=== PATIENT | male | born 1955 | race Caucasian/White ===

== ENCOUNTER 2016-12-02 04:43 | Emergency (ER) | payer OTHER ==
[2016-12-02 05:24] VITALS: BMI 30.2
--- NOTE | 2016-12-02 06:30 | PDOC ---
History of Present Illness - General Chief Complaint: Pain Stated Complaint: ABD PAIN History Source: Patient Exam Limitations: No Limitations - History of Present Illness Initial Comments: 12/02/16 06:24 61 yo male with h/o aaa 9 (4.5 cm) followed by dr cooney, here with c/o abd pain. no radiation. started on right side, now towards midline. no nausea, no vomiting. no f/c no new numbness or weakness. pain radiates from epigastrum to chest. no urinary complaint.s no cough. no change to stool. Past History - Past Medical History Allergies/Adverse Reactions: Allergies Allergy/AdvReac Type Severity Reaction Status Date / Time No Known Allergies Allergy Verified 12/02/16 05:21 Home Medications: Ambulatory Orders Aspirin [ASA -] 325 mg PO DAILY 03/26/11 Multivits-Min/FA/Lycopene/Lut [Centrum Silver Tablet] 1 each PO DAILY 03/26/11 Anemia: No Asthma: No Cancer: No Cardiac Disorders: No CVA: No COPD: No CHF: No Dementia: No Diabetes: No GI Disorders: No Disorders: No HTN: No Hypercholesterolemia: No Liver Disease: No Seizures: No Thyroid Disease: No - Surgical History Abdominal Surgery: No Appendectomy: No Cardiac Surgery: No Cholecystectomy: No Lung Surgery: No Neurologic Surgery: No Orthopedic Surgery: No - Suicide/Smoking/Psychosocial Hx Smoking History: Never smoked Have you smoked in the past 12 months: No Number of Cigarettes Smoked Daily: 30 Information on smoking cessation initiated: No Hx Alcohol Use: No Drug/Substance Use Hx: No Review of Systems - Review of Systems Constitutional: No: Chills, Diaphoresis HEENTM: No: Blurred Vision Respiratory: No: Cough, Orthopnea Cardiac (ROS): Yes: Chest Pain. No: See HPI ABD/GI: Yes: Nausea, Other (abd pain). No: Abdominal Distended : No: Burning, Dysuria Musculoskeletal: No: Back Pain, Gout All Other Systems: Reviewed and Negative *Physical Exam - Vital Signs Last Vital Signs Temp Pulse Resp BP Pulse Ox 98.0 F 55 L 14 158/80 97 12/02/16 05:22 12/02/16 05:22 12/02/16 05:22 12/02/16 05:22 12/02/16 05:22 - Physical Exam General Appearance: Yes: Nourished HEENT: positive: Normal ENT Inspection Neck: positive: Trachea midline. negative: Normal Thyroid Respiratory/Chest: positive: Lungs Clear, Normal Breath Sounds Cardiovascular: positive: Regular Rhythm, Regular Rate, S1, S2 Gastrointestinal/Abdominal: positive: Normal Bowel Sounds, Flat, Soft, Other ( no pulsatile masses). negative: Tender Musculoskeletal: positive: Normal Inspection. 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 differential pancreatitis, gastritis, aaa, uti, plan ct angio labs ekg trop reassess.
[2016-12-02 06:59] LABS: BASOPHIL 0.5 % (0-2.0); EOSINOPHIL 0.4 % (0-4.5); MCH 32.4 pg (25.7-33.7); MCHC 34.7 g/dl (32.0-35.9); MEAN CELL VOLUME 93.4 fl (80-96); PLATELET COUNT 194 K/MM3 (134-434); RDW 13.2 % (11.9-15.9); WHITE BLOOD COUNT 10.3 K/mm3 (4.0-10.0)
[2016-12-02 07:14] LABS: INR 1.04 (0.82-1.09); PROTHROMBIN TIME (PATIENT) 11.5 SEC (9.98-11.88)
[2016-12-02 07:17] LABS: ACTIVATED PTT 36.7 SECONDS (26.9-34.4)
[2016-12-02 07:24] LABS: ANION GAP 6 (8-16); BILIRUBIN,TOTAL 0.3 mg/dL (0.2-1.0); CALCIUM 8.5 mg/dL (8.5-10.1); CO2 27 mmol/L (21-32); CREATININE 0.8 mg/dL (0.7-1.3); GLUCOSE,RANDOM 145 mg/dL (74-106); SGPT/ALT 17 U/L (12-78); TOT PROT 7.3 g/dl (6.4-8.2)
[2016-12-02 07:27] LABS: ALK PHOS 77 U/L (45-117); CPK 91 IU/L (39-308); TROPONIN I < 0.02 ng/ml (0.00-0.05)
[2016-12-02 07:29] LABS: SGOT/AST 19 U/L (15-37)
[2016-12-02 09:15] VITALS: TEMP 97.9
--- NOTE | 2016-12-02 09:26 | PDOC ---
*Physical Exam - Vital Signs Last Vital Signs Temp Pulse Resp BP Pulse Ox 97.9 F 63 18 143/79 98 12/02/16 08:23 12/02/16 08:23 12/02/16 08:23 12/02/16 08:23 12/02/16 08:23 <Catie Romo - Last Filed: 12/02/16 10:13> - Vital Signs Last Vital Signs Temp Pulse Resp BP Pulse Ox 97.9 F 63 18 143/79 98 12/02/16 08:23 12/02/16 08:23 12/02/16 08:23 12/02/16 08:23 12/02/16 08:23 - Physical Exam Comments: 12/02/16 09:23 VSS well appearing, lying comfortably in stretcher. asx now, no abd pain heart/lungs normal abd soft/nt/nd bs nl. no pulsatile mass or guarding/rebound <Fercho Garcia - Last Filed: 12/02/16 11:08> ED Treatment Course - LABORATORY CBC & Chemistry Diagram: 12/02/16 06:45 12/02/16 06:45 - ADDITIONAL ORDERS Additional order review: Laboratory Results 12/02/16 12/02/16 06:45 06:45 PT with INR 11.50 INR 1.04 PTT (Actin FS) 36.7 H Sodium 137 Potassium 4.9 Chloride 104 Carbon Dioxide 27 Anion Gap 6 L BUN 21 H Creatinine 0.8 Creat Clearance w eGFR > 60 Random Glucose 145 H Calcium 8.5 Total Bilirubin 0.3 AST 19 ALT 17 Alkaline Phosphatase 77 Creatine Kinase 91 Troponin I < 0.02 Total Protein 7.3 Albumin 4.0 12/02/16 06:45 RBC 4.75 MCV 93.4 MCHC 34.7 RDW 13.2 MPV 7.0 L Neutrophils % 83.0 H Lymphocytes % 10.7 Monocytes % 5.4 Eosinophils % 0.4 Basophils % 0.5 <Catie Romo - Last Filed: 12/02/16 10:13> - LABORATORY CBC & Chemistry Diagram: 12/02/16 06:45 12/02/16 06:45 - ADDITIONAL ORDERS Additional order review: Laboratory Results 12/02/16 12/02/16 06:45 06:45 PT with INR 11.50 INR 1.04 PTT (Actin FS) 36.7 H Sodium 137 Potassium 4.9 Chloride 104 Carbon Dioxide 27 Anion Gap 6 L BUN 21 H Creatinine 0.8 Creat Clearance w eGFR > 60 Random Glucose 145 H Calcium 8.5 Total Bilirubin 0.3 AST 19 ALT 17 Alkaline Phosphatase 77 Creatine Kinase 91 Troponin I < 0.02 Total Protein 7.3 Albumin 4.0 12/02/16 06:45 RBC 4.75 MCV 93.4 MCHC 34.7 RDW 13.2 MPV 7.0 L Neutrophils % 83.0 H Lymphocytes % 10.7 Monocytes % 5.4 Eosinophils % 0.4 Basophils % 0.5 <Fercho Garcia - Last Filed: 12/02/16 11:08> Medical Decision Making - Medical Decision Making 12/02/16 10:07 Placed call to patient's PCP, Dr. Gonzalez at [phone]. Awaiting callback. 12/02/16 10:[address] George Cooney of Vascular Surgery at [phone]. Awaiting callback. 12/02/16 10:[address] Cooney. <Catie Romo - Last Filed: 12/02/16 10:13> - Medical Decision Making 12/02/16 09:23 Received signout on this 61-year-old male who awoke with some right-sided abdominal discomfort that radiated to his epigastric region, since resolved. He has a history of a known AAA measuring 4.3 cm on last evaluation, his vital signs were normal, his abdominal exam was benign, and his labs were unremarkable. Plan at sign out was to follow up CTA of the chest/abdomen/pelvis, to check a second troponin given the radiation of pain to the epigastric region for atypical chest pain, and to likely discharge if the above workup is negative. CTA shows slight enlargement of the known AAA from 4.3 cm to 4.8 cm, scattered other aneurysmal dilatations in the abdomen, but no evidence of acute rupture or dissection or other acute pathology. The patient's pain has resolved, his abdominal exam remains benign, and he is well-appearing. At this time, acute aneurysmal pathology is clinically unlikely. We'll check second troponin as per prior plan, and begin dispo planning with Dr. Cooney, the patient's vascular surgeon, and Dr. Gonzalez, the patient's primary physician. 12/02/16 10:59 2nd troponin negative. Discussed with Dr. cooney, no acute interventions needed. Continues to feel well, agrees with d/c plan. <Fercho Garcia - Last Filed: 12/02/16 11:08> *DC/Admit/Observation/Transfer - Attestations Scribe Attestion: 12/02/16 10:12 Documentation prepared by Catie Romo, acting as medical administrative specialist for Fercho Garcia MD. <Catie Romo - Last Filed: 12/02/16 10:13> <Fercho Garcia - Last Filed: 12/02/16 11:08> Diagnosis at time of Disposition: Generalized abdominal pain AAA (abdominal aortic aneurysm) Qualifiers: Presence of rupture: without rupture Qualified Code(s): I71.4 - Abdominal aortic aneurysm, without rupture - Discharge Dispostion Disposition: HOME Condition at time of disposition: Improved - Referrals Referrals: Geoffrey Gonzalez MD [Primary Care Provider] - George Cooney MD [Staff Physician] - - Patient Instructions Printed Discharge Instructions: DI for Abdominal Pain-Adult, Aortic Aneurysm Additional Instructions: Activity as tolerated. Stay hydrated. Blood tests and a CAT scan of the abdomen and pelvis showed no acute abnormalities today. The aneurysm is slightly larger than before, measuring 4.[address] Cooney as scheduled. Continue your medications as previously prescribed by your physician. You should follow up with Dr. Gonzalez and Dr. Cooney as soon as possible regarding today's emergency department visit. Return to the emergency department for any new or concerning symptoms, particularly persistent or worsening pain, bloody vomit or stool, fevers or chills, chest pain or difficulty breathing.
[2016-12-02 10:12] LABS: URINE APPEARANCE CLEAR; URINE BILIRUBIN NEGATIVE (NEGATIVE); URINE BLOOD NEGATIVE (NEGATIVE); URINE COLOR STRAW; URINE GLUCOSE (UA) NEGATIVE (NEGATIVE); URINE KETONE TRACE (NEGATIVE); URINE LEUK ESTERASE NEGATIVE (NEGATIVE); URINE NITRITE NEGATIVE (NEGATIVE); URINE PROTEIN NEGATIVE (NEGATIVE); URINE UROBILINOGEN NEGATIVE mg/dL (0.2-1.0)
[2016-12-02 10:33] LABS: CPK 83 IU/L (39-308); TROPONIN I < 0.02 ng/ml (0.00-0.05)
[2016-12-02 11:21] VITALS: BP 126/70; PULSE 65
--- NOTE | 2016-12-02 20:55 | EKG ---
Test Reason : Blood Pressure : / mmHG Vent. Rate : 055 BPM Atrial Rate : 055 BPM P-R Int : 154 ms QRS Dur : 096 ms QT Int : 442 ms P-R-T Axes : 068 -12 053 degrees QTc Int : 422 ms SINUS BRADYCARDIA LEFT AXIS DEVIATION SLOW R PROGRESSION V1-V3 NO PREVIOUS ECGS AVAILABLE CLINICAL CORRELATION IS RECOMMENDED REPEAT EKG IF CLINICALLY INDICATED Confirmed by RENO MARISCAL MD ([id number] on 12/02/2016 8:54:57 PM Referred By: Confirmed By:RENO MARISCAL MD
== END 2016-12-02 11:21 | disposition home or self-care (01) ==
LOC: JER 04:43
DX: R10.84 Generalized abdominal pain (principal); I71.4 Abdominal aortic aneurysm, without rupture
CPT/HCPCS: 36415; 71020-TC; 71275-TC; 74174-TC; 80053; 81003; 84484; 85025; 85610; 85730; 93005; 93010; 99283-25

== ENCOUNTER 2017-06-12 07:20 | Day surgery (SDC) | payer OTHER ==
[2017-06-11 08:39] VITALS: BMI 31.5
[2017-06-12] MEDS ORDERED: ACETAMINOPHEN INJECTION 100 ML IVPB ONE (07:25)
--- NOTE | 2017-06-12 07:56 | HP ---
[facility] - Chief Complaint Chief Complaint: LEFT KNEE PAIN History Source: Patient - Past Medical History Allergies/Adverse Reactions: Allergies Allergy/AdvReac Type Severity Reaction Status Date / Time No Known Allergies Allergy Verified 06/12/17 07:37 - Current Medications Current Medications: Home Medications Medication Instructions Recorded Aspirin [ASA -] 325 mg PO DAILY 06/11/17 Naproxen Sodium [Aleve] 220 mg PO PRN PRN 06/11/17 Satellite Physical Exam - Physical Examination Extremities: Other (+ JOINT LINE TENDERNESS) [facility] Impression/Plan - Impression/Plan Impression: INERNAL DERANGEMENT LEFT KNEE Operative Procedure: ARTHROSCOPY LEFT KNEE Date to be Performed: 06/12/17
[2017-06-12] MEDS ORDERED: MIDAZOLAM HCL 2 MG/2 ML SINGLE DOSE VIAL ONE (08:52)
[2017-06-12] MEDS ORDERED: LIDOCAINE HCL/PF 2% SDV 5ML VIAL ONE (09:06)
[2017-06-12] MEDS ORDERED: PROPOFOL 20 ML ONE (09:06)
[2017-06-12] MEDS ORDERED: KETOROLAC TROMETHAMINE 30 MG/1 ML VIAL ONE (09:06)
--- NOTE | 2017-06-12 09:42 | OP ---
Operative Note - Note: Operative Date: 06/12/17 Pre-Operative Diagnosis: INTERNAL DERANGEMENT LEFT KNEE Operation: ARTHROSCOPY LEFT KNEE AND MM Post-Operative Diagnosis: Same as Pre-op Surgeon: Richmond Bradshaw Anesthesia: General Operative Report Dictated: Yes
[2017-06-12] MEDS ORDERED: oxyCODONE HCL 5 MG TABLET PO PRN (09:53)
[2017-06-12] MEDS ORDERED: ONDANSETRON 4 MG/2 ML VIAL IVPUSH PRN (09:53)
[2017-06-12] MEDS ORDERED: LACTATED RINGERS SOLUTION 1,000 ML IV SCH (10:00)
[2017-06-12] MEDS ORDERED: BUPIVACAINE HCL/PF 0.5% (5MG/ML) 10 ML VIAL IJ ONE (10:02)
[2017-06-12] MEDS ORDERED: LIDOCAINE HCL 1%, 10 MG/ML (20ML VIAL) INF ONE (10:02)
--- NOTE | 2017-06-12 10:32 | OP ---
DATE OF OPERATION: 06/12/2017 PREOPERATIVE DIAGNOSIS: Internal derangement of left knee. POSTOPERATIVE DIAGNOSIS: Internal derangement of left knee. PROCEDURE: Arthroscopy, left knee. Partial medial meniscectomy. SURGICAL ATTENDING: Richmond Bradshaw MD ANESTHESIA: General with LMA. CLOSURE: 4-0 nylon COMPLICATIONS: None. CONDITION: To recovery room in stable condition. DESCRIPTION OF THE OPERATIVE PROCEDURE: Patient taken to the operating room on June 12, 2017. General anesthesia with LMA was administered by the anesthesiologist. Left lower extremity was prepped and draped in the usual sterile fashion. Medial and lateral infrapatellar portal sites were made with 15-blade followed by blunt trocar. Scope was placed in the lateral infrapatellar portal and up to suprapatellar pouch. The knee was inflated with a cocktail of 10 mL of 1% Xylocaine, 10 mL 0.5% Marcaine, 20 mL of arthroscopic saline. After allowing a few minutes for the anesthetic to work, we proceeded with the procedure. Medial and lateral gutters were visualized to be intact, with the undersurface of the patella and trochlea visualized to be intact. With valgus stress on the knee, the medial compartment was entered. The medial meniscus was visualized, probed, and found to have a complex tear of the posterior horn. This was debrided back to smooth, stable meniscal tissue using meniscal biter and arthroscopic shaver. There were some significant diffuse changes of the medial femoral condyle. Any loose articular cartilage was debrided using the shaver. The same was true of the medial tibial plateau. At 90 degrees the ACL was visualized, probed, found to be intact. In the figure 4 position, lateral compartment was entered. Lateral meniscus was visualized, probed, found to be intact. Lateral femoral condyle was run and found to be intact, as was the lateral tibial plateau. Knee was irrigated with copious amounts of irrigation. Portals were closed with 4-0 nylon. Prior to closure, 20 mL of 0.5% Marcaine was infused into the knee for postoperative analgesia. Sterile pressure dressing was placed over the knee. Patient awakened from anesthesia and transferred to recovery room in stable condition. No complications. Estimated blood loss negligible. Nadia [id number]
[2017-06-12 11:08] VITALS: TEMP 97.9
[2017-06-12 12:27] VITALS: BP 127/65; PULSE 75
--- NOTE | 2017-06-15 14:05 | PATH ---
Surgical Pathology Report Patient Name: BARAK LEHMAN Med. Rec. #: [id number] /Age/Gender: 1955 (Age: 62) / M Account: [id number] Location: [facility] SURGICAL Taken: 06/12/2017 Received: 06/12/2017 Reported: 06/15/2017 Physicians: Richmond Bradshaw M.D. Specimen(s) Received LEFT KNEE SHAVINGS Clinical History Left knee internal derangement Final Diagnosis KNEE, LEFT, ARTHROSCOPIC SHAVING: FIBROCARTILAGE WITH MYXOID DEGENERATIVE CHANGES, ALONG WITH PORTIONS OF SYNOVIUM AND HYALINE CARTILAGE. Electronically Signed Steve Ovalle M.D. Gross Description Received in formalin labeled "left knee shavings" are multiple fragments of white-lyon soft tissue measuring 1.5 x 1.5 x 0.2 cm in aggregate. The entire specimen submitted in one cassette. ALLEN/06/12/2017 sharee/06/12/2017
== END 2017-06-12 12:15 | disposition home or self-care (01) ==
LOC: JASU-SURG 07:20
PROVIDERS: ATTEND Orthopaedic Surgery
PROC: 0SBD4ZZ Excision of Left Knee Joint, Percutaneous Endoscopic Approach (ICD-10-PCS; principal; 2017-06-12 08:45)
DX: M23.8X2 Other internal derangements of left knee (principal)
CPT/HCPCS: 88304-TC; 94760; J0131

== ENCOUNTER 2018-08-24 00:09 | Inpatient (IN) | payer OTHER | END 2018-08-27 11:44 | disposition home or self-care (01) | LOC: JER 00:09 → JERBED 03:47 → J8W 14:58 ==

== ENCOUNTER 2018-12-21 05:14 | Inpatient (IN) | payer OTHER ==
[2018-12-21 06:32] VITALS: BMI 34.3
[2018-12-21 07:18] LABS: ALBUMIN 4.4 g/dl (3.4-5.0); ALK PHOS 77 U/L (45-117); ANION GAP 9 MMOL/L (8-16); BILIRUBIN,TOTAL 0.4 mg/dL (0.2-1); BLOOD UREA NITROGEN 21.6 mg/dL (7-18); CALCIUM 9.3 mg/dL (8.5-10.1); CHLORIDE 102 mmol/L (98-107); CO2 27 mmol/L (21-32); GLUCOSE,RANDOM 174 mg/dL (74-106); POTASSIUM 4.2 mmol/L (3.5-5.1); SGOT/AST 15 U/L (15-37); SGPT/ALT 17 U/L (13-61); SODIUM 138 mmol/L (136-145)
[2018-12-21 07:25] LABS: HEMATOCRIT 40.9 % (35.4-49); HEMOGLOBIN 14.2 GM/dL (11.7-16.9); MCH 31.2 pg (25.7-33.7); MCHC 34.9 g/dl (32.0-35.9); MEAN CELL VOLUME 89.5 fl (80-96); MEAN PLT VOLUME 7.1 fl (7.5-11.1); PLATELET COUNT 236 K/MM3 (134-434); RBC 4.57 M/mm3 (4.00-5.60); RDW 12.6 % (11.9-15.9); WHITE BLOOD COUNT 10.9 K/mm3 (4.0-10.0)
[2018-12-21] MEDS ORDERED: SODIUM CHLORIDE 1,000 ML IV STA ×2 (07:27→09:52)
[2018-12-21] MEDS ORDERED: ACETAMINOPHEN 1000 MG/100 ML VIAL (NON FORMULARY) IVPB ONE (07:27)
[2018-12-21] MEDS ORDERED: FAMOTIDINE 20 MG/50 ML IVPB 20 MG/50 ML MG IVPB ONE ×2 (07:27→07:55)
[2018-12-21 07:33] LABS: INR 1.03 (0.83-1.09); PROTHROMBIN TIME (PATIENT) 12.2 SEC (9.7-13.0)
--- NOTE | 2018-12-21 07:53 | PDOC ---
History of Present Illness - General Chief Complaint: Pain Stated Complaint: ABD PAIN Time Seen by Provider: 12/21/18 07:20 History Source: Patient, Old Records Exam Limitations: No Limitations - History of Present Illness Initial Comments: 12/21/18 07:50 63yo M with PMH of AAA presenting to ED with complaints of abdominal pain that started 11pm last night. Patient states he ate fried eggs at around 9pm and then the pain started 2h later. He describes the pain as sharp, constant located in the epigastric area and RLQ. He thought it was gas and tried taking Gas-X but vomited. He states that drinking water makes the pain worse. Pain does not radiate. Has had chronic R sided back pain, not worse today. Denies diarrhea, constipation, chest pain, sob, new back pain, urinary symptoms, fevers , chills, recent travel, abdominal surgeries. He says he had a "scan" last month for the AAA and says it has been stable. PMD: Lisa PMH: AAA PSH: None Meds: none Allergies: nkda Social: former smoker Past History - Past Medical History Allergies/Adverse Reactions: Allergies Allergy/AdvReac Type Severity Reaction Status Date / Time No Known Allergies Allergy Verified 12/21/18 06:31 Home Medications: Ambulatory Orders Aspirin [Viviana Chewable] 81 mg PO DAILY 08/24/18 Albuterol Sulfate Inhaler - [Ventolin Hfa Inhaler -] 1 - 2 inh PO Q4H #1 inhaler 08/26/18 Budesonide/Formeterol Fumarate [SYMBICORT 80/4.5mcg -] 2 inh PO DAILY #1 cannister 08/26/18 Prednisone See Taper PO DAILY #98 tablet 08/26/18 Nicotine Polacrilex [Nicorette] 4 mg BC Q2H #180 gum 08/27/18 Pantoprazole Sodium [Protonix] 40 mg PO DAILY #30 tablet. 08/27/18 Anemia: No Asthma: No Cancer: No Cardiac Disorders: Yes (ABDOMINAL ANEURSYM BEING FOLLOWED) CVA: No COPD: No CHF: No Dementia: No Diabetes: No GI Disorders: No Disorders: No HTN: No Hypercholesterolemia: No Liver Disease: No Seizures: No Thyroid Disease: No - Surgical History Abdominal Surgery: No Appendectomy: No Cardiac Surgery: No Cholecystectomy: No Lung Surgery: No Neurologic Surgery: No Orthopedic Surgery: No - Psycho Social/Smoking Cessation Hx Smoking History: Never smoked Have you smoked in the past 12 months: Yes Number of Cigarettes Smoked Daily: 40 If you are a former smoker, when did you quit?: August 2018 Cigars Per Day: 3 'Breaking Loose' booklet given: 08/24/18 Hx Alcohol Use: No Drug/Substance Use Hx: No Substance Use Type: None Hx Substance Use Treatment: No Review of Systems - Review of Systems Constitutional: No: Chills, Fever HEENTM: No: Symptoms Reported Respiratory: No: Symptoms reported Cardiac (ROS): No: Symptoms Reported ABD/GI: Yes: Nausea, Vomiting, Abdominal cramping. No: Constipated, Diarrhea : No: Symptoms Reported Musculoskeletal: Yes: See HPI, Back Pain (chronic) Integumentary: No: Symptoms Reported Neurological: No: Symptoms reported *Physical Exam - Vital Signs Last Vital Signs Temp Pulse Resp BP Pulse Ox 97.7 F 53 L 19 158/80 98 12/21/18 05:20 12/21/18 05:20 12/21/18 05:20 12/21/18 05:20 12/21/18 05:20 - Physical Exam General Appearance: Yes: Appropriately Dressed, Obese. No: Apparent Distress HEENT: positive: EOMI, SHWETA, Normal ENT Inspection Neck: positive: Trachea midline, Supple. negative: Lymphadenopathy (R), Lymphadenopathy (L) Respiratory/Chest: positive: Lungs Clear, Normal Breath Sounds. negative: Crackles, Rales, Rhonchi, Stridor, Wheezing Cardiovascular: positive: Regular Rhythm, Regular Rate, S1, S2. negative: Edema , JVD, Murmur Vascular Pulses: Dorsalis-Pedis (R): 2+, Doralis-Pedis (L): 2+ Gastrointestinal/Abdominal: positive: Normal Bowel Sounds, Protuberent, Tenderness (epigastric, RUQ). negative: Rebound, Hernia, Mass Musculoskeletal: negative: CVA Tenderness, Muscle Spasm, Vertebral Tenderness Extremity: positive: Normal Capillary Refill. 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, Fully Oriented, Alert, Normal Mood/ Affect, Normal Response, Motor Strength 07/18 ED Treatment Course - LABORATORY CBC & Chemistry Diagram: 12/21/18 06:20 12/21/18 06:20 - ADDITIONAL ORDERS Additional order review: Laboratory Results 12/21/18 12/21/18 12/21/18 06:20 06:20 06:20 PT with INR 12.20 INR 1.03 Sodium 138 Potassium 4.2 Chloride 102 Carbon Dioxide 27 Anion Gap 9 BUN 21.6 H Creatinine 1.0 Est GFR (CKD-EPI)AfAm 93.08 Est GFR (CKD-EPI)NonAf 80.31 Random Glucose 174 H Lactic Acid 2.3 H* Calcium 9.3 Total Bilirubin 0.4 AST 15 ALT 17 Alkaline Phosphatase 77 Creatine Kinase 86 Troponin I < 0.02 Total Protein 8.0 Albumin 4.4 Medical Decision Making - Medical Decision Making 12/21/18 07:56 63yo M with PMH of AAA presenting to ED with abdominal pain. vitals wnl. not hypotensive or tachycardic. ddx includes but not limited to expanding aaa, cholecystitis, choledocolithiasis , appendicitis, gastritis, GERD, pud, obstruction. bedside ultrasound shows stone in neck of gallbladder. unable to visualize aorta due to bowel gas. +sonographic upton's sign. labs ordered by night team with lactate of 2.3. all other labs wnl. -iv fluids ofirmev pepcid ekg: sinus bradycardia at 52bpm. no signs of ischemia. Called Dr. Gonzalez in regards to patient history; has not seen patient for a while. due to history of AAA, will obtain CTA AP to evaluate size. CTAP shows 5.8cm AAA which is larger compared to previous imaging which showed 5.4 cm (never had CTAP at this facility). Previous US have shown AAA at largest to be 5.1 cm (most recent done last month) . He is not on any statins or bp meds. gallstone without signs of acute cholecystitis. Called Dr. Barreto: wants to admit patient to be monitored. accepted by hospitalist. patient still in pain; given morphine. Discharge - Discharge Information Problems reviewed: Yes Clinical Impression/Diagnosis: AAA (abdominal aortic aneurysm) Qualifiers: Presence of rupture: without rupture Qualified Code(s): I71.4 - Abdominal aortic aneurysm, without rupture Abdominal pain Qualifiers: Abdominal location: epigastric Qualified Code(s): R10.13 - Epigastric pain Condition: Fair - Admission Yes - Follow up/Referral - Patient Discharge Instructions - Post Discharge Activity
[2018-12-21] MEDS ORDERED: ACETAMINOPHEN INJECTION 100 ML IVPB ONE (07:55)
[2018-12-21 08:28] LABS: EPI CELLS 0.6 /HPF (0-5/HPF); HYALINE CASTS 1 /lpf (0-8); PH,URINE 6.5 (5.0-8.0); URINE APPEARANCE CLEAR; URINE BACTERIA 0.8 /hpf (NEGATIVE); URINE BILIRUBIN NEGATIVE (NEGATIVE); URINE COLOR YELLOW; URINE GLUCOSE (UA) NEGATIVE (NEGATIVE); URINE KETONE TRACE (NEGATIVE); URINE LEUK ESTERASE NEGATIVE (NEGATIVE); URINE NITRITE NEGATIVE (NEGATIVE); URINE PROTEIN 1+ (NEGATIVE); URINE RBC 1 /hpf (0-4); URINE UROBILINOGEN 0.2 mg/dL (0.2-1.0); URINE WBC 1 /hpf (0-5)
--- NOTE | 2018-12-21 09:23 | PDOC ---
Attending Attestation - Resident Resident Name: [facility] - ED Attending Attestation I have performed the following: I have examined & evaluated the patient, The case was reviewed & discussed with the resident, I agree w/resident's findings & plan, Exceptions are as noted
--- NOTE | 2018-12-21 12:04 | EKG ---
Test Reason : Blood Pressure : / mmHG Vent. Rate : 052 BPM Atrial Rate : 052 BPM P-R Int : 154 ms QRS Dur : 102 ms QT Int : 432 ms P-R-T Axes : 040 -10 050 degrees QTc Int : 401 ms SINUS BRADYCARDIA OTHERWISE NORMAL ECG WHEN COMPARED WITH ECG OF 24-AUG-2018 01:05, VENT. RATE HAS DECREASED BY 60 BPM QRS AXIS SHIFTED RIGHT Confirmed by Gary Vivar ([id number]) on 12/21/2018 12:04:35 PM Referred By: Confirmed By:Gary Vivar
--- NOTE | 2018-12-21 12:57 | PDOC ---
Documentation entered by Augustus Lee SCRIBE, acting as scribe for Jcarlos Perez MD. Jcarlos Perez MD: This documentation has been prepared by the Jesus paulino Daniel, SCRIBE, under my direction and personally reviewed by me in its entirety. I confirm that the documentation accurately reflects all work, treatment, procedures, and medical decision making performed by me. Attending Attestation - Resident Resident Name: [facility] - ED Attending Attestation I have performed the following: I have examined & evaluated the patient, The case was reviewed & discussed with the resident, I agree w/resident's findings & plan, Exceptions are as noted - HPI HPI: 12/21/18 10:01 The patient is a 63 year old male with a past medical history of AAA here today for evaluation of abdominal pain. The patient reports that his pain started last night around 11 PM and describes it as constant, localized in the epigastric and right lower quadrant area, and without any alleviating or worsening factors. He notes that his pain feels like gas pain that he had previously and also notes some abdominal distention. He reports that he is able to pass gas, had one episode of vomiting, and that his last bowel movement was yesterday and was smaller than usual. Patient denies headache, lightheadedness. Denies fever, chills. Denies chest pain, shortness of breath. Allergies: NKA PCP: Geoffrey Gonzalez - Physicial Exam PE: 12/21/18 10:01 Vitals: Triage vital signs reviewed General Appearance: No acute distress, well nourished, well developed Head: Atraumatic Neck: Supple; No nuchal rigidity Chest Wall: Nontender Cardiac: Regular rate and rhythm, no murmurs, no rubs, no gallops Lungs: Clear to auscultation bilateral, good air movement bilaterally Abdomen: +mild distention. +diffuse abdominal tenderness that is maximal on the right side. Soft, normal bowel sounds Extremities: Full range of motion to all extremities, no cyanosis, clubbing, or edema Skin: Warm and dry, no rashes or lesions, no rash, no petechiae Neuro: AOX3; Cranial Nerves 2-12 grossly intact, Strength intact to all extremities, Sensation intact to all extremities Psych: Normal mood, normal affect - Medical Decision Making 12/21/18 16:30 CT findings as dictated, patient still persistent abdominal discomfort Vascular surgery consulted Given enlargement of the aneurysm slight lactic acidosis and persistent abdominal discomfort vascular surgery recommends admission for consultation and further management No evidence of leakage from AAA
[2018-12-21] MEDS ORDERED: morphine CARPU-JECT 4 MG/1 ML DISP.SYRIN IVPUSH ONE (13:13)
--- NOTE | 2018-12-21 13:14 | HP ---
Admitting History and Physical - Primary Care Physician PCP: Geoffrey Gonzalez - Admission Chief Complaint: abdominal pain History of Present Illness: 63yo M with PMH of AAA presenting to ED with complaints of abdominal pain that started 11pm last night after eating eggs. Describes the pain as sharp, constant located in the epigastric area and RLQ. He thought it was gas and tried taking Gas-X but vomited. Pain was incraesed with drinking water. Pain does not radiate. Has had chronic R sided back pain Denies diarrhea, constipation, chest pain, sob, new back pain, urinary symptoms, fevers, chills, recent travel, abdominal surgeries. He says he had a "scan" last month for the AAA and says it has been stable. He has been recommended by multiple providers medications for BP, chol, COPD and had declined. He has been follwoed by Dr Barreto for past 5 years for AAA History Source: Patient - Past Medical History Cardiovascular: Yes: Other (AAA 5.8cm) Pulmonary: Yes: Bronchitis, COPD, Pneumonia Musculoskeletal: Yes: Chronic low back pain - Smoking History Smoking history: Never smoked Have you smoked in the past 12 months: Yes Aproximately how many cigarettes per day: 40 If you are a former smoker, when did you quit?: August 2018 - Alcohol/Substance Use Hx Alcohol Use: No - Social History ADL: Independent Home Medications - Allergies Allergies/Adverse Reactions: Allergies Allergy/AdvReac Type Severity Reaction Status Date / Time No Known Allergies Allergy Verified 12/21/18 06:31 - Home Medications Home Medications: Ambulatory Orders Aspirin [Viviana Chewable Aspirin] 81 mg PO DAILY 08/24/18 Budesonide/Formeterol Fumarate [SYMBICORT 80/4.5mcg -] 2 inh PO DAILY #1 cannister 12/22/18 Lidocaine 5% Patch [Lidoderm -] 1 patch TP DAILY #30 patch 12/22/18 Lisinopril [Prinivil] 5 mg PO DAILY #30 tablet 12/22/18 Nicotine Polacrilex [Nicorette] 4 mg BC Q2H #180 gum 12/22/18 Family Medical History Family History: Denies Review of Systems - Review of Systems Constitutional: reports: No Symptoms Eyes: reports: No Symptoms HENT: reports: No Symptoms Neck: reports: No Symptoms Cardiovascular: reports: No Symptoms Respiratory: reports: No Symptoms Gastrointestinal: reports: Abdominal Pain, Vomiting Genitourinary: reports: No Symptoms Breasts: reports: No Symptoms Reported Musculoskeletal: reports: Back Pain Integumentary: reports: No Symptoms Neurological: reports: No Symptoms Endocrine: reports: No Symptoms Hematology/Lymphatic: reports: No Symptoms Psychiatric: reports: No Symptoms Physical Examination Vital Signs: Vital Signs Temperature 97.7 F 12/21/18 05:20 Pulse Rate 58 L 12/21/18 10:34 Respiratory Rate 16 12/21/18 10:34 Blood Pressure 164/74 12/21/18 10:34 O2 Sat by Pulse Oximetry (%) 97 12/21/18 10:34 Constitutional: Yes: Well Nourished, No Distress, Calm Eyes: Yes: WNL, Conjunctiva Clear, EOM Intact HENT: Yes: WNL, Atraumatic, Normocephalic Neck: Yes: WNL, Supple, Trachea Midline Cardiovascular: Yes: WNL, Regular Rate and Rhythm Respiratory: Yes: WNL, Regular, CTA Bilaterally Gastrointestinal: Yes: WNL, Normal Bowel Sounds, Soft ...Rectal Exam: Yes: Deferred Renal/: Yes: WNL Musculoskeletal: Yes: Back Pain (TTP to right lower back) Extremities: Yes: WNL Edema: No Peripheral Pulses WNL: Yes Peripheral Pulses: Left Radial: 2+, Right Radial: 2+, Left Doralis Pedis: 2+, Right Dorsalis Pedis: 2+, Left Femoral: 2+, Right Femoral: 2+ Integumentary: Yes: WNL Neurological: Yes: WNL, Alert, Oriented ...Motor Strength: WNL Psychiatric: Yes: WNL Labs: CBC, BMP 12/21/18 06:20 12/21/18 06:20 Imaging - Results Cat Scan: Report Reviewed Other: Report Reviewed (TTE 08/2018: normal LVEF) Problem List - Problems (1) Former smoker Assessment/Plan: c/w nicorette gum counseled on continue smoking cessation Code(s): Z87.891 - PERSONAL HISTORY OF NICOTINE DEPENDENCE (2) Prophylactic measure Assessment/Plan: FEN IVF NPO until after testing monitor electrolyes DVT ambulatory low risk Dispo maintain as in patient full code discharge planning to home Code(s): Z29.9 - ENCOUNTER FOR PROPHYLACTIC MEASURES, UNSPECIFIED (3) Abdominal pain Assessment/Plan: IV ofrimev prn given MSO4 in ED will try to avoid narcotics Code(s): R10.9 - UNSPECIFIED ABDOMINAL PAIN Qualifiers: Abdominal location: epigastric Qualified Code(s): R10.13 - Epigastric pain (4) COPD (chronic obstructive pulmonary disease) Assessment/Plan: pt prescribed symbicort at home refused to use Code(s): J44.9 - CHRONIC OBSTRUCTIVE PULMONARY DISEASE, UNSPECIFIED (5) HTN (hypertension) Assessment/Plan: start low dose lisinipril given AAA cardiology consultation requested TTE ordered Code(s): I10 - ESSENTIAL (PRIMARY) HYPERTENSION (6) AAA (abdominal aortic aneurysm) Assessment/Plan: followed by Dr Barreto w/u for surgical clearance for endovascular AAA repair Code(s): I71.4 - ABDOMINAL AORTIC ANEURYSM, WITHOUT RUPTURE Qualifiers: Presence of rupture: without rupture Qualified Code(s): I71.4 - Abdominal aortic aneurysm, without rupture Visit type - Emergency Visit Emergency Visit: Yes ED Registration Date: 12/21/18 Care time: The patient presented to the Emergency Department on the above date and was hospitalized for further evaluation of their emergent condition. - New Patient This patient is new to me today: Yes Date on this admission: 12/22/18 - Critical Care Critical Care patient: No
[2018-12-21] MEDS ORDERED: ALBUTEROL SO4 2.5/IPRATROPIUM 0.5 INH SOL 3 ML VIAL.NEB. NEB PRN (13:25)
[2018-12-21] MEDS ORDERED: MORPHINE SULFATE 2 MG/ML VIAL ONE (13:55)
--- NOTE | 2018-12-21 15:16 | CON.CARD ---
Consult Consult Specialty:: cardiology Reason for Consultation:: hx AAA; - History of Present Illness Chief Complaint: Pt A&Ox3; denies chest pain, dyspnea. History of Present Illness: The patient is a 63 year old white male with a past medical history of AAA, HTN , borderline DM, ?COPD (2-3 ppd smoker for 30 yrs; quit 4 months ago), truncal obesity, hyperlipidemia, who is here today for evaluation of abdominal pain. The patient reports that his pain started last night around 11 PM and describes it as constant, localized in the epigastric and right lower quadrant area, and without any alleviating or worsening factors. He notes that his pain feels like gas pain that he had previously and also notes some abdominal distention. He reports that he is able to pass gas, had one episode of vomiting, and that his last bowel movement was yesterday and was smaller than usual. Patient denies headache, lightheadedness. Denies fever, chills. Denies chest pain, shortness of breath. Allergies: NKA PCP: Geoffrey Gonzalez Pt has been taking meloxicam daily for back pain. - History Source History Provided By: Patient, Medical Record Limitations to Obtaining History: No Limitations - Past Medical History Cardio/Vascular: Yes: HTN, Hyperlipdemia Pulmonary: Yes: Bronchitis, Pneumonia Renal/: No: Renal Inusuff Heme/Onc: No: Anemia Psych: No: Addictions - Past Surgical History Additional Surgical History: left knee repair - Alcohol/Substance Use Hx Alcohol Use: No - Smoking History Smoking history: Former smoker (smoked x 30 yrs, 2-3 ppd) Have you smoked in the past 12 months: Yes Aproximately how many cigarettes per day: 60 If you are a former smoker, when did you quit?: August 2018 - Social History ADL: Independent Home Medications - Allergies Allergies/Adverse Reactions: Allergies Allergy/AdvReac Type Severity Reaction Status Date / Time No Known Allergies Allergy Verified 12/21/18 06:31 - Home Medications Home Medications: Ambulatory Orders Aspirin [Viviana Chewable] 81 mg PO DAILY 08/24/18 Budesonide/Formeterol Fumarate [SYMBICORT 80/4.5mcg -] 2 inh PO DAILY #1 cannister 08/26/18 Nicotine Polacrilex [Nicorette] 4 mg BC Q2H #180 gum 06/14/19 Pantoprazole Sodium [Protonix] 40 mg PO DAILY #30 tablet. 08/27/18 Family Medical History Family History: Denies Review of Systems - Review of Systems Constitutional: reports: No Symptoms Eyes: reports: No Symptoms HENT: reports: No Symptoms Neck: reports: No Symptoms Cardiovascular: reports: No Symptoms Respiratory: reports: No Symptoms Gastrointestinal: reports: Abdominal Pain Genitourinary: reports: No Symptoms Breasts: reports: No Symptoms Reported Musculoskeletal: reports: Muscle Pain Integumentary: reports: No Symptoms Neurological: reports: No Symptoms Endocrine: reports: No Symptoms Hematology/Lymphatic: reports: No Symptoms Psychiatric: reports: No Symptoms - Risk Factors Known Risk Factors: Yes: Age, Gender, Hypercholesterolemia, Hypertension, Smoking (quit 4 months ago after 60-90 pack years) Vital Signs: Vital Signs Temperature 97.7 F 12/21/18 05:20 Pulse Rate 58 L 12/21/18 10:34 Respiratory Rate 16 12/21/18 10:34 Blood Pressure 164/74 12/21/18 10:34 O2 Sat by Pulse Oximetry (%) 97 12/21/18 10:34 Constitutional: Yes: No Distress, Obese Eyes: Yes: Conjunctiva Clear HENT: Yes: WNL Neck: Yes: WNL Respiratory: Yes: WNL Gastrointestinal: Yes: Abdomen, Obese. No: Tenderness Renal/: Yes: WNL JVD: No Carotid Bruit: No PMI: Non-Displaced Heart Sounds: Yes: S1, S2, S4 Murmur: Yes: Systolic Murmur, Grade 1, Grade 4 - Other Data Labs, Other Data: CBC, BMP 12/21/18 06:20 12/21/18 06:20 INR, PTT INR 1.03 (0.83-1.09) 12/21/18 06:20 Troponin, BNP 12/21/18 06:20 Troponin I < 0.02 Troponin, BNP 12/21/18 06:20 Troponin I < 0.02 Imaging - Results Chest X-ray: Image Reviewed Cat Scan: Image Reviewed Ultrasound: Report Reviewed (ECHO 09/01: normal LVEF; borderline LVH) EKG: Image Reviewed Problem List - Problems (1) COPD (chronic obstructive pulmonary disease) Assessment/Plan: heavy smoker who quit only recently. F/u with emergency medical tech. Code(s): J44.9 - CHRONIC OBSTRUCTIVE PULMONARY DISEASE, UNSPECIFIED (2) AAA (abdominal aortic aneurysm) Assessment/Plan: 5.8 cm AAA (distal to renal arteries); reported as mildly increased in size, without strong evidence of impending rupture. ECHO 08/2018: normal LVEF Sinus bradycardia makes starting beta tamela problematic. Pt denies chest pain or dyspnea. He walks nearly every day (at least 3-4 blocks and a long flight of stairs daily; sometimes, including this month, he walks as much as 3 miles). Hx Stress MIBI "about 2 years ago"; to obtain records. Code(s): I71.4 - ABDOMINAL AORTIC ANEURYSM, WITHOUT RUPTURE Qualifiers: Presence of rupture: without rupture Qualified Code(s): I71.4 - Abdominal aortic aneurysm, without rupture (3) Obesity Code(s): E66.9 - OBESITY, UNSPECIFIED (4) HTN (hypertension) Assessment/Plan: Control BP; start lisinopril 5 mg daily. Problematic using beta blockers, given bradycardia. F/u TSH. Code(s): I10 - ESSENTIAL (PRIMARY) HYPERTENSION (5) Chronic diastolic (congestive) heart failure Code(s): I50.32 - CHRONIC DIASTOLIC (CONGESTIVE) HEART FAILURE
[2018-12-21 15:33] LABS: CHOLESTEROL 176 mg/dL (50-200); HDL CHOLESTEROL 28 mg/dL (40-60)
--- NOTE | 2018-12-21 17:54 | PN ---
Progress Note (short form) - Note Progress Note: Vascular Surgery Pt seen and examined. Came in for epigastric pain since last night. Feeling better now. CTA abd shows 5.8cm AAA. We have been following for long time. Pt has extensive smoking history. Will need endovascular AAA repair. Will need cardiology clearance prior to procedure. Pt not sure if he wants it on this admission this week. George Barreto DO
[2018-12-21] MEDS ORDERED: LIDOCAINE 5% TOPICAL PATCH ONE (18:43)
[2018-12-21] MEDS ORDERED: LISINOPRIL 5 MG TABLET (FP) ONE (18:43)
[2018-12-21] MEDS: LIDOCAINE 5% TOPICAL PATCH TP SCH (18:49)
[2018-12-21] MEDS: LISINOPRIL 5 MG TABLET (FP) PO SCH (18:49)
[2018-12-21] MEDS ORDERED: LIDOCAINE PATCH REMOVAL MC SCH (22:00)
[2018-12-21] MEDS ORDERED: HEPARIN NA (PORCINE) 5,000 UNITS/ML 1ML VIAL ONE (22:06)
[2018-12-21] MEDS: HEPARIN NA (PORCINE) 5,000 UNITS/ML 1ML VIAL SQ SCH (22:11)
[2018-12-21] MEDS ORDERED: SODIUM CHLORIDE 1,000 ML IV SCH (22:45)
[2018-12-21] MEDS: ACETAMINOPHEN 1000 MG/100 ML VIAL (NON FORMULARY) IVPB PRN (23:10)
[2018-12-22 07:39] LABS: BASO % 0.5 % (0-2.0); EOS % 2.3 % (0-4.5); HEMATOCRIT 41.5 % (35.4-49); HEMOGLOBIN 14.2 GM/dL (11.7-16.9); LYMPH % 15.3 % (8-40); MCH 31.2 pg (25.7-33.7); MCHC 34.3 g/dl (32.0-35.9); MEAN CELL VOLUME 90.7 fl (80-96); MEAN PLT VOLUME 7.1 fl (7.5-11.1); MONO % 10.7 % (3.8-10.2); NEUT % 71.2 % (42.8-82.8); PLATELET COUNT 215 K/MM3 (134-434); RBC 4.57 M/mm3 (4.00-5.60); RDW 12.9 % (11.9-15.9); WHITE BLOOD COUNT 9.7 K/mm3 (4.0-10.0)
[2018-12-22] MEDS ORDERED: ACETAMINOPHEN INJECTION 100 ML IVPB ONE (07:41)
[2018-12-22] MEDS: ACETAMINOPHEN 1000 MG/100 ML VIAL (NON FORMULARY) IVPB PRN (07:49)
[2018-12-22 07:52] VITALS: TEMP 98.5
[2018-12-22 08:02] LABS: BLOOD UREA NITROGEN 13.5 mg/dL (7-18); CALCIUM 8.4 mg/dL (8.5-10.1); CREATININE 0.9 mg/dL (0.55-1.3); POTASSIUM 3.8 mmol/L (3.5-5.1); TOT PROT 7.3 g/dl (6.4-8.2)
--- NOTE | 2018-12-22 09:45 | DS ---
Physical Exam: SUBJECTIVE: Patient seen and examined OBJECTIVE: Vital Signs Period Temp Pulse Resp BP Sys/Dempsey Pulse Ox Last 24 Hr 98.0 F-98.5 F 58-86 16-20 106-164/56-74 96-98 PHYSICAL EXAM GENERAL: The patient is awake, alert, and fully oriented, in no acute distress. HEAD: Normal with no signs of trauma. EYES: PERRL, extraocular movements intact, sclera anicteric, conjunctiva clear. ENT: Ears normal, nares patent, oropharynx clear without exudates, moist mucous membranes. NECK: Trachea midline, full range of motion, supple. LUNGS: Breath sounds equal, clear to auscultation bilaterally, no wheezes, no crackles, no accessory muscle use. HEART: Regular rate and rhythm, S1, S2 without murmur, rub or gallop. ABDOMEN: Soft, nontender, nondistended, normoactive bowel sounds, no guarding, no rebound, no hepatosplenomegaly, no masses. EXTREMITIES: 2+ pulses, warm, well-perfused, no edema. NEUROLOGICAL: Cranial nerves II through XII grossly intact. Normal speech, gait not observed. PSYCH: Normal mood, normal affect. SKIN: Warm, dry, normal turgor, no rashes or lesions noted. LABS Laboratory Results - last 24 hr 12/21/18 12/21/18 12/21/18 06:20 06:20 15:00 WBC RBC Hgb Hct MCV MCH MCHC RDW Plt Count MPV Absolute Neuts (auto) Neutrophils % Lymphocytes % Monocytes % Eosinophils % Basophils % Nucleated RBC % Sodium 138 Potassium 4.2 Chloride 102 Carbon Dioxide 27 Anion Gap 9 BUN 21.6 H Creatinine 1.0 Est GFR (CKD-EPI)AfAm 93.08 Est GFR (CKD-EPI)NonAf 80.31 Random Glucose 174 H Hemoglobin A1c % 6.2 Calcium 9.3 Magnesium Total Bilirubin 0.4 AST 15 ALT 17 Alkaline Phosphatase 77 Creatine Kinase 86 Troponin I < 0.02 Total Protein 8.0 Albumin 4.4 Cholesterol 176 Total LDL Cholesterol 95 HDL Cholesterol 28 L TSH 1.16 Blood Type Antibody Screen 12/21/18 12/22/18 12/22/18 15:00 05:44 05:44 WBC 9.7 RBC 4.57 Hgb 14.2 Hct 41.5 MCV 90.7 MCH 31.2 MCHC 34.3 RDW 12.9 Plt Count 215 MPV 7.1 L Absolute Neuts (auto) 6.9 Neutrophils % 71.2 D Lymphocytes % 15.3 D Monocytes % 10.7 H D Eosinophils % 2.3 D Basophils % 0.5 Nucleated RBC % 0 Sodium 137 Potassium 3.8 Chloride 102 Carbon Dioxide 27 Anion Gap 8 BUN 13.5 Creatinine 0.9 Est GFR (CKD-EPI)AfAm 105.72 Est GFR (CKD-EPI)NonAf 91.22 Random Glucose 122 H Hemoglobin A1c % Calcium 8.4 L Magnesium 2.0 Total Bilirubin 1.0 AST 13 L ALT 14 Alkaline Phosphatase 62 Creatine Kinase Troponin I Total Protein 7.3 Albumin 4.0 Cholesterol Total LDL Cholesterol HDL Cholesterol TSH Blood Type O POSITIVE Antibody Screen Negative HOSPITAL COURSE: Date of Admission:12/21/18 Date of Discharge: 12/22/18 Minutes to complete discharge: 35 Discharge Summary Problems reviewed: Yes Reason For Visit: ABD AORTIC ANEURYSM,ABD PAIN Current Active Problems Abdominal pain (Acute) COPD (chronic obstructive pulmonary disease) (Acute) Chronic diastolic (congestive) heart failure (Acute) Former smoker (Acute) HTN (hypertension) (Acute) Prophylactic measure (Acute) AAA (abdominal aortic aneurysm) (Chronic) Condition: Fair - Instructions Referrals: Geoffrey Gonzalez MD [Primary Care Provider] - George Barreto MD [Non Staff, Medical] - (call for appointment for thursday) Disposition: HOME - Home Medications Comprehensive Discharge Medication List: Ambulatory Orders Aspirin [Viviana Chewable Aspirin] 81 mg PO DAILY 08/24/18 Budesonide/Formeterol Fumarate [SYMBICORT 80/4.5mcg -] 2 inh PO DAILY #1 cannister 12/22/18 Lidocaine 5% Patch [Lidoderm -] 1 patch TP DAILY #30 patch 12/22/18 Lisinopril [Prinivil] 5 mg PO DAILY #30 tablet 12/22/18 Nicotine Polacrilex [Nicorette] 4 mg BC Q2H #180 gum 12/22/18 Prescription Drug Monitoring Program (I-STOP) results: I-STOP reviewed and no issues identified Problem List - Problems (1) Former smoker Assessment/Plan: c/w nicorette gum counseled on continue smoking cessation Code(s): Z87.891 - PERSONAL HISTORY OF NICOTINE DEPENDENCE (2) Prophylactic measure Assessment/Plan: FEN resume cardiac diet DVT low risk Dispo discharge to home with follow up with Dr Barreto Code(s): Z29.9 - ENCOUNTER FOR PROPHYLACTIC MEASURES, UNSPECIFIED (3) Abdominal pain Assessment/Plan: resolved Problems reviewed: Yes Code(s): R10.9 - UNSPECIFIED ABDOMINAL PAIN Qualifiers: Abdominal location: epigastric Qualified Code(s): R10.13 - Epigastric pain (4) COPD (chronic obstructive pulmonary disease) Assessment/Plan: pt prescribed symbicort at home refused to use Code(s): J44.9 - CHRONIC OBSTRUCTIVE PULMONARY DISEASE, UNSPECIFIED (5) HTN (hypertension) Assessment/Plan: started low dose lisinipril given AAA Code(s): I10 - ESSENTIAL (PRIMARY) HYPERTENSION (6) AAA (abdominal aortic aneurysm) Assessment/Plan: followed by Dr Barreto plan for endovascular AAA repair Code(s): I71.4 - ABDOMINAL AORTIC ANEURYSM, WITHOUT RUPTURE Qualifiers: Presence of rupture: without rupture Qualified Code(s): I71.4 - Abdominal aortic aneurysm, without rupture This patient is new to me today: No Emergency Visit: Yes ED Registration Date: 12/21/18 Care time: The patient presented to the Emergency Department on the above date and was hospitalized for further evaluation of their emergent condition. Critical Care patient: No - Discharge Referral Referred to [facility] No
[2018-12-22] MEDS ORDERED: ASPIRIN 81 MG CHEWABLE TABLETS PO SCH (10:00)
[2018-12-22] MEDS ORDERED: PANTOPRAZOLE 40 MG TABLET (FP) PO SCH (10:00)
--- NOTE | 2018-12-22 10:12 | PN ---
Progress Note, Physician History of Present Illness: The patient is a 63 year old white male with a past medical history of AAA, HTN , borderline DM, ?COPD (2-3 ppd smoker for 30 yrs; quit 4 months ago), truncal obesity, hyperlipidemia, who is here today for evaluation of abdominal pain. The patient reports that his pain started last night around 11 PM and describes it as constant, localized in the epigastric and right lower quadrant area, and without any alleviating or worsening factors. He notes that his pain feels like gas pain that he had previously and also notes some abdominal distention. He reports that he is able to pass gas, had one episode of vomiting, and that his last bowel movement was yesterday and was smaller than usual. Patient denies headache, lightheadedness. Denies fever, chills. Denies chest pain, shortness of breath. Allergies: NKA PCP: Geoffrey Gonzalez Pt has been taking meloxicam daily for back pain. - Current Medication List Current Medications: Active Medications Acetaminophen (Ofirmev Injection -) 1,000 mg IVPB Q6H PRN PRN Reason: PAIN LEVEL 4 - 6 Stop: 12/22/18 23:59 Last Admin: 12/22/18 07:49 Dose: 1,000 mg Aspirin (Asa -) 81 mg PO DAILY [facility] Atorvastatin Calcium (Lipitor -) 10 mg PO HS [facility] Heparin Sodium (Porcine) (Heparin -) 5,000 unit SQ BID [facility] Last Admin: 12/21/18 22:11 Dose: 5,000 unit Sodium Chloride (Normal Saline -) 1,000 mls @ 75 mls/hr IV ASDIR [facility] Last Admin: 12/21/18 23:10 Dose: 75 mls/hr Lidocaine (Lidoderm Patch -) 1 patch TP DAILY [facility] Last Admin: 12/21/18 18:49 Dose: 1 patch Lisinopril (Prinivil) 5 mg PO DAILY [facility] Last Admin: 12/21/18 18:49 Dose: 5 mg Miscellaneous (Lidoderm Patch Removal) 1 each MC DAILY@2200 [facility] Last Admin: 12/21/18 22:01 Dose: 1 each Pantoprazole Sodium (Protonix -) 40 mg PO DAILY [facility] - Objective Vital Signs: Vital Signs Temperature 98.5 F 12/22/18 07:45 Pulse Rate 86 12/22/18 07:45 Respiratory Rate 20 12/22/18 07:45 Blood Pressure 106/67 12/22/18 07:45 O2 Sat by Pulse Oximetry (%) 98 12/22/18 07:45 Eyes: Yes: WNL, Conjunctiva Clear, EOM Intact HENT: Yes: WNL, Atraumatic, Normocephalic Neck: Yes: WNL, Supple, Trachea Midline Cardiovascular: Yes: WNL, Regular Rate and Rhythm Respiratory: Yes: WNL, Regular, CTA Bilaterally Gastrointestinal: Yes: WNL, Normal Bowel Sounds Genitourinary: Yes: WNL Musculoskeletal: Yes: WNL Extremities: Yes: WNL Edema: No Integumentary: Yes: WNL Neurological: Yes: WNL, Alert, Oriented ...Motor Strength: WNL Psychiatric: Yes: WNL Labs: CBC, BMP 12/22/18 05:44 12/22/18 05:44 INR, PTT INR 1.03 (0.83-1.09) 12/21/18 06:20 Assessment/Plan Problems (1) COPD (chronic obstructive pulmonary disease) Assessment/Plan: heavy smoker who quit only recently. F/u with rotary filter operator. Code(s): J44.9 - CHRONIC OBSTRUCTIVE PULMONARY DISEASE, UNSPECIFIED (2) AAA (abdominal aortic aneurysm) Assessment/Plan: 5.8 cm AAA (distal to renal arteries); reported as mildly increased in size, without strong evidence of impending rupture. ECHO 08/2018: normal LVEF Sinus bradycardia makes starting beta tamela problematic. Pt denies chest pain or dyspnea. He walks nearly every day (at least 3-4 blocks and a long flight of stairs daily; sometimes, including this month, he walks as much as 3 miles). Hx Stress MIBI "about 2 years ago"; to obtain records. Code(s): I71.4 - ABDOMINAL AORTIC ANEURYSM, WITHOUT RUPTURE Qualifiers: Presence of rupture: without rupture Qualified Code(s): I71.4 - Abdominal aortic aneurysm, without rupture (3) Obesity Code(s): E66.9 - OBESITY, UNSPECIFIED (4) HTN (hypertension) Assessment/Plan: Control BP; start lisinopril 5 mg daily. Problematic using beta blockers, given bradycardia. F/u TSH. Code(s): I10 - ESSENTIAL (PRIMARY) HYPERTENSION (5) Chronic diastolic (congestive) heart failure Code(s): I50.32 - CHRONIC DIASTOLIC (CONGESTIVE) HEART FAILURE
[2018-12-22] MEDS: HEPARIN NA (PORCINE) 5,000 UNITS/ML 1ML VIAL SQ SCH (11:00)
[2018-12-22] MEDS: LIDOCAINE 5% TOPICAL PATCH TP SCH (11:00)
[2018-12-22] MEDS: LISINOPRIL 5 MG TABLET (FP) PO SCH (11:28)
--- NOTE | 2018-12-22 12:14 | EKG ---
Test Reason : Blood Pressure : / mmHG Vent. Rate : 080 BPM Atrial Rate : 080 BPM P-R Int : 146 ms QRS Dur : 106 ms QT Int : 396 ms P-R-T Axes : 069 -22 045 degrees QTc Int : 456 ms NORMAL SINUS RHYTHM NORMAL ECG WHEN COMPARED WITH ECG OF 21-DEC-2018 06:46, VENT. RATE HAS INCREASED BY 28 BPM QT HAS LENGTHENED Confirmed by MADHAVI CONNORS, NIRMAL ([id number]) on 12/22/2018 12:13:42 PM Referred By: TRISTAN DUKE Confirmed By:NIRMAL HENDRICKSON MD
[2018-12-22 12:16] VITALS: BP 114/65; PULSE 88
[2018-12-22] MEDS ORDERED: ATORVASTATIN CA 10 MG TABLET (FP) PO SCH (22:00)
== END 2018-12-22 11:07 | disposition home or self-care (01) | DRG 300 ==
LOC: JER 05:14 → JERBED 11:42
PROVIDERS: ADMIT Internal Medicine; ATTEND Nurse Practitioner Acute Care
DX: I71.4 Abdominal aortic aneurysm, without rupture (principal); E87.2 Acidosis; I50.32 Chronic diastolic (congestive) heart failure; R10.13 Epigastric pain; J44.9 Chronic obstructive pulmonary disease, unspecified; R00.1 Bradycardia, unspecified; E66.9 Obesity, unspecified; Z68.34 Body mass index [BMI] 34.0-34.9, adult; I11.0 Hypertensive heart disease with heart failure; Z87.891 Personal history of nicotine dependence
CPT/HCPCS: 36415; 71045-TC-FY; 74174-TC; 80053; 81003; 82465; 82550; 83036; 83605; 83718; 83721; 83735; 84443; 84484; 85025; 85027; 85610; 86850; 86900; 86901; 87086; 93005; 93010; 99284-25; J0131; J1644; J7030